=== PATIENT | female | born 1955 | race Caucasian/White ===

== ENCOUNTER 2016-07-09 05:06 | Inpatient (IN) | payer BC ==
[2016-06-14 13:26] VITALS: BMI 40.0
--- NOTE | 2016-06-14 13:55 | PAT Medication Instructions ---
Service Date Jun 14, 2016. Current Home Medication List Naproxen (Aleve), 440 MG PO PRN [Dr Karime Smith], 1 DOSE PO UD Medication Instructions For Your Scheduled Surgery - Hold the following medications 7-10 days prior to surgery per surgeon' instructions: Naproxen (Aleve), 440 MG PO PRN - Hold the following medications the morning of surgery: [Dr Karime Smith], 1 DOSE PO UD Nothing to eat or drink after midnight If you have any questions please call us at [phone] or [phone] or [phone]
[2016-06-14 14:31] LABS: BASO % 0.4 %; BASO ABS # 0.03 K/uL (0-0.2); COMPLETE YES; EOS % 0.9 %; HEMATOCRIT 43.9 % (37-47); LYMPH % 29.4 %; LYMPH ABS # 1.99 K/uL (1.2-3.4); MEAN CELL VOLUME 90.1 fL (80-100); MEAN CORPUSCULAR HEMOGLOBIN 29.6 pg (25-34); MEAN CORPUSCULAR HGB CONC 32.8 g/dl (32-36); MEAN PLATELET VOLUME 9.4 fL (7.4-10.4); MONO % 8.9 %; NEUT % 60.4 %; PLATELET COUNT 262 K/uL (130-400); RED BLOOD COUNT 4.87 M/uL (4.2-5.4); WHITE BLOOD COUNT 6.76 K/uL (4.8-10.8)
--- NOTE | 2016-06-14 14:34 | DIAGNOSTIC IMAGING REPORT ---
CHEST PREADMISSION(PA/LAT) CLINICAL HISTORY: Preoperative chest COMPARISON STUDY: No previous studies for comparison. FINDINGS: The cardiac and mediastinal contours are normal. There is no evidence of focal pulmonary consolidation. There is no evidence of failure. No pleural effusions are visualized.[ IMPRESSION: No active disease in the chest. Electronically signed by: Reji Rosario M.D. 06/14/2016 2:33 PM Dictated Date/Time: 06/14/2016 2:33 PM
[2016-06-14 14:58] LABS: URINE APPEARANCE CLOUDY (CLEAR); URINE BILIRUBIN NEG (NEG); URINE COLOR YELLOW; URINE EPITHELIAL CELL AUTO >30 /lpf (0-5); URINE NITRITE NEG (NEG); URINE PH 5.5 (4.5-7.5); URINE SPECIFIC GRAVITY 1.016 (1.000-1.030); UROBILINOGEN NEG (NEG); ZZUR CULT IF INDIC CLEAN CATCH YES
[2016-06-14 15:06] LABS: MANUAL MICROSCOPIC REQUIRED? NO; REVIEW REQ? YES
[2016-06-14 15:12] LABS: BUN/CREATININE RATIO 11.5 (10-20); CALCIUM 9.2 mg/dl (8.5-10.1); POTASSIUM 4.2 mmol/L (3.5-5.1)
--- NOTE | 2016-07-08 11:39 | HISTORY & PHYSICAL EXAMINATION ---
DATE OF ADMISSION: 07/09/2016 CHIEF COMPLAINT: Left hip pain. HISTORY OF PRESENT ILLNESS: Gertrudis is a 60-year-old female with a year history of left hip pain. The patient rates her pain an 8/10. She has pain with her daily activities. She has limited standing and walking tolerance. Pain is worse with weightbearing. The patient has failed physical therapy, injections, and anti-inflammatories over the years without relief. She is now scheduled for a left hip replacement. PAST MEDICAL HISTORY: Benign. She denies heart disease, diabetes or DVT. PAST SURGICAL HISTORY: and hysterectomy. SOCIAL HISTORY: The patient drinks 3 drinks per week. She denies tobacco use. She lives in a 2-story home. She lives alone, but her daughter is coming to stay with her postoperatively. She currently works as an surgery manager. FAMILY HISTORY: Negative for DVT. MEDICATIONS: Calcium 600 mg, vitamin B12 1000 mcg, multivitamin, vitamin D3, estradiol 0.5 mg b.i.d. and Aleve p.r.n. ALLERGIES: PENICILLIN CAUSES A RASH. REVIEW OF SYSTEMS: See HPI. Ten other systems reviewed, all negative. PHYSICAL EXAMINATION: VITAL SIGNS: Height 5 feet 5 inches. Weight 242 pounds. BMI is 40. GENERAL: This is a well-developed, well-nourished female who is alert and oriented x3. Mood and affect are appropriate. HEENT: Normocephalic, atraumatic. Mucous membranes are moist and intact. NECK: Supple without lymphadenopathy. HEART: Regular rate and rhythm without murmurs, rubs or gallops. LUNGS: Clear to auscultation without wheezes or rhonchi. ABDOMEN: Soft and nontender. Bowel sounds are equal and active. EXTREMITIES: No ecchymosis, redness or warmth. Log roll of the hip reproduces pain in the groin. Range of motion is decreased. She is neurovascularly intact with +5/5 strength. X-RAY EXAMINATION: AP and lateral views show joint space narrowing and osteophyte formation. IMPRESSION: Degenerative joint disease, left hip. PLAN: The patient will be admitted for a left total hip arthroplasty. We will plan on aspirin for DVT prophylaxis. PCP is Dr. Tommy Dorado. She is going to have [facility] for home physical therapy.
[2016-07-09] VITALS (10 sets, daily range): BP systolic 106–136; BP diastolic 68–80; PULSE 60–76; TEMP 36.3–36.9; O2SAT 93–99; Ht 165.1 cm; Wt 110.6 kg
[~2016-07-09] VITALS: Ht 165.1 cm; Wt 110.6 kg
[~2016-07-09 05:06] MED LIST: NAPR1TAB9 PO; [UNRECOGNIZED DRUG - REMARK] PO
[2016-07-09] MEDS ORDERED: LACTATED RINGER'S 1000ML 1,000 ML IV SCH ×2 (06:00)
[2016-07-09] MEDS ORDERED: FAMOTIDINE 20 MG TAB PO SCH (06:00)
[2016-07-09] MEDS ORDERED: DEXAMETHASONE 4 MG TAB PO SCH (06:00)
[2016-07-09] MEDS ORDERED: VANCOMYCIN INJ 400 MG in NSS 100ML IR SCH (06:00)
[2016-07-09] MEDS ORDERED: LACTATED RINGER'S 1000ML 500 ML IV ONE (06:00)
[2016-07-09] MEDS ORDERED: GABAPENTIN 300 MG CAP PO SCH (06:00)
[2016-07-09] MEDS ORDERED: ACETAMINOPHEN 500 MG TAB PO SCH (06:00)
[2016-07-09] MEDS ORDERED: CLINDAMYCIN 600 MG/54 ML D5W 54 ML IV SCH (06:00)
[2016-07-09] MEDS ORDERED: OXYCODONE HCL 10 MG TABCR (OXYCONTIN) PO SCH (06:00)
[2016-07-09] MEDS ORDERED: METOCLOPRAMIDE HCL 10 MG TAB PO SCH (06:00)
[2016-07-09] MEDS ORDERED: CeleBREX 200 MG CAP PO SCH ×2 (06:00→21:00)
[2016-07-09] MEDS ORDERED: ROPIVACAINE 5MG/ML 30 ML 150 MG, BUPIVACAINE/EPINEPHR 0.5% MPF 30 ML, KETOROLAC TROMETH... INFIL SCH ×7 (06:00)
[2016-07-09] MEDS ORDERED: POLYMYXIN B SULFATE 100,000 UNITS in NSS 100ML IR SCH (06:00)
[2016-07-09] MEDS ORDERED: BUPIVACAINE 0.5 % 5 MG/1 ML PF 10ML VIAL ONE (06:37)
[2016-07-09] MEDS ORDERED: ORTHO JOINT ANESTHETIC ONE (06:51)
[2016-07-09] MEDS ORDERED: POVIDONE-IODINE OP SOLN 30 ML BTL ONE (06:51)
[2016-07-09] MEDS ORDERED: BACITRACIN 50000 UNIT VIAL ONE (06:51)
[2016-07-09] MEDS: TRANEXAMIC ACID INJ 1,000 MG in SODIUM CHLORIDE 0.9% 100ML 100 ML IV SCH ×2 (06:52→10:51)
--- NOTE | 2016-07-09 06:54 | History & Physical Bridge Note ---
H&P Re-Evaluation Bridge Note: I have examined the patient, reviewed the History & Physical and in the interval since the performance of the History & Physical I have noted the following changes of clinical significance: ANTERIOR HIP REPLACEMENT
[2016-07-09] MEDS ORDERED: ATROPINE SULFATE 0.1 MG/ML 5ML SYR IV PRN (07:15)
[2016-07-09] MEDS ORDERED: ONDANSETRON INJ 2 MG/ML 2 ML VIAL IV PRN ×2 (07:15→08:45)
[2016-07-09] MEDS ORDERED: PHENYLEPHRINE 100MCG/ML 5ML SYR IV PRN (07:15)
[2016-07-09] MEDS ORDERED: KETOROLAC TROMETHAMINE 30 MG/ML VIAL IV. PRN (07:15)
[2016-07-09] MEDS ORDERED: HYDROmorphone INJ 2 MG/ML SYR/VIAL IV PRN (07:15)
[2016-07-09] MEDS ORDERED: EpHEDrine SULFATE INJ 50 MG/ML AMP IV PRN (07:15)
[2016-07-09] MEDS ORDERED: MIDAZOLAM HCL 1 MG/ML 2ML VIAL ONE ×3 (07:21→07:42)
[2016-07-09] MEDS ORDERED: FENTANYL CITRATE INJ 50 MCG/1 ML 2 ML VIAL ONE (07:42)
--- NOTE | 2016-07-09 08:41 | DIAGNOSTIC IMAGING REPORT ---
INTRAOPERATIVE RADIOGRAPHS CLINICAL HISTORY: Left hip arthroplasty. Fluoroscopy time: 17 seconds. FINDINGS: 2 spot fluoroscopic views of the left hip are presented. A left hip arthroplasty is in near-anatomic alignment. A single cortical lag screw transfixes the acetabular cup. There is no evidence of acute fracture on these fluoroscopic views. IMPRESSION: Intraoperative images from a left hip arthroplasty procedure as above. Electronically signed by: Kenneth Marrufo M.D. 07/09/2016 8:40 AM Dictated Date/Time: 07/09/2016 8:39 AM
--- NOTE | 2016-07-09 08:41 | [facility] Post Operative Brief Note ---
Immediate Operative Summary Operative Date July 09, 2016. Pre-Operative Diagnosis Degenerative joint disease, left hip Post-Operative Diagnosis Same as preop MORBID OBESITY BMI 41 Procedure(s) Performed Left Total Hip Arthroplasty, uncemented, Direct Anterior Approach Surgeon Dr. Schaffer Carpenter Supervisor Wooden Ship Surgeon(s) Matthew Henderson PA-C Estimated Blood Loss 125 cc Findings DJD Specimens A: left femoral head Complication(s) None Disposition Recovery Room / PACU
[2016-07-09] MEDS ORDERED: ZOLPIDEM TARTRATE 5 MG TAB PO PRN (08:45)
[2016-07-09] MEDS ORDERED: TRAMADOL HCL 50 MG TAB PO PRN (08:45)
[2016-07-09] MEDS ORDERED: BISACODYL 10 MG SUPP PR PRN (08:45)
[2016-07-09] MEDS ORDERED: ALUMINUM/MAGNESIUM/SIMETH (MAALOX MAX) 30 ML UDC PO PRN (08:45)
[2016-07-09] MEDS ORDERED: DiphenhydrAMINE HCL 50 MG/ML VIAL IV PRN (08:45)
[2016-07-09] MEDS ORDERED: METOCLOPRAMIDE HCL INJ 5 MG/ML 2 ML VIAL IV PRN (08:45)
[2016-07-09] MEDS ORDERED: SOD PHOSPHATE/SOD BIPHOSPHATE ENEMA 132 ML BTL PR PRN (08:45)
[2016-07-09] MEDS ORDERED: MAGNESIUM HYDROXIDE SUSP 30 ML UDC PO PRN (08:45)
[2016-07-09] MEDS ORDERED: OXYCODONE HCL IR 5 MG TAB (IMMEDIATE RELEASE) PO PRN (08:45)
--- NOTE | 2016-07-09 09:46 | DIAGNOSTIC IMAGING REPORT ---
LEFT PELVIS/UNILATERAL HIP 1 VIEW CLINICAL HISTORY: Left hip arthroplasty. COMPARISON: None FINDINGS: Alignment of the total left hip arthroplasty is anatomic. There is no periprosthetic fracture or unexpected radiopaque foreign body. Surgical drain is in place. IMPRESSION: Expected findings following total left hip arthroplasty. Electronically signed by: Bird Coffey M.D. 07/09/2016 9:44 AM Dictated Date/Time: 07/09/2016 9:43 AM
--- NOTE | 2016-07-09 10:06 | Anesthesiology Progress Note ---
Anesthesia Post Op Note Date & Time July 09, 2016 at 10:06 Vital Signs Pain Intensity: 0 Vital Signs Past 12 Hours Date Time Temp Pulse Resp B/P Pulse Ox O2 Delivery O2 Flow Rate FiO2 07/09/16 10:00 60 15 108/73 97 Nasal Cannula 2 07/09/16 09:50 36.1 61 16 119/89 97 Nasal Cannula 2 07/09/16 09:40 60 14 116/73 98 Nasal Cannula 2 07/09/16 09:30 60 16 111/74 98 Nasal Cannula 2 07/09/16 09:20 63 12 121/70 99 Nasal Cannula 2 07/09/16 09:10 61 20 110/71 98 Nasal Cannula 2 07/09/16 09:03 36.1 64 16 133/70 96 Nasal Cannula 2 07/09/16 05:47 36.9 73 18 122/73 95 Room Air Notes Mental Status: alert / awake / arousable, participated in evaluation Pt Amnestic to Procedure: Yes Nausea / Vomiting: adequately controlled Pain: adequately controlled Airway Patency, RR, SpO2: stable & adequate BP & HR: stable & adequate Hydration State: stable & adequate Neuraxial Anesthesia: was administered, sensory block is resolving Anesthetic Complications: no major complications apparent
[2016-07-09] MEDS ORDERED: PROPOFOL IV EMULSION 10 MG/ML 20 ML VIAL IV ONE ×3 (10:29→10:43)
[2016-07-09] MEDS: D5W AND 1/2NSS + 20MEQ KCL 1,000 ML IV SCH ×2 (12:41→21:15)
[2016-07-09] MEDS: KETOROLAC TROMETHAMINE 30 MG/ML VIAL IV. SCH ×3 (12:42→23:31)
[2016-07-09] MEDS ORDERED: TRANEXAMIC ACID INJ 1,000 MG in SODIUM CHLORIDE 0.9% 100ML 100 ML IV ONE (15:00)
[2016-07-09] MEDS: CLINDAMYCIN IV 600 MG in DEXTROSE 5% ADD-VANTAGE 50ML 50 ML IV SCH ×2 (16:41→23:31)
[2016-07-09] MEDS: ACETAMINOPHEN 500 MG TAB PO SCH ×2 (16:47→23:32)
--- NOTE | 2016-07-09 20:04 | OPERATIVE REPORT ---
DATE OF OPERATION: 07/09/2016 PREOPERATIVE DIAGNOSES: 1. Degenerative arthritis, left hip. 2. Morbid obesity, BMI 40. POSTOPERATIVE DIAGNOSES: Same. PROCEDURE: Left total hip replacement. SURGEON: Antonio Schaffer M.D. PLANER HAND: Latasha Henderson PA-C. ANESTHESIA: Spinal. BLOOD LOSS: 125 mL. REPLACEMENT FLUIDS: 1800 mL of crystalloid. DRAINS: Hemovacs x1. CULTURES: None. COMPLICATIONS: None. COMPONENTS USED: Roberts \T\ Nephew Anthology hip system: Acetabulum size 50, femur size 7 standard offset, femoral head 0, neck length 32 mm. NOTE: Latasha Henderson PA-C was present and assisted throughout due to the complicated nature of this case. She helped with preparation and setup, first assisted throughout and personally closed the fascial, subcutaneous and skin layers and applied the postoperative dressing. OPERATION AND FINDINGS: DESCRIPTION: Following satisfactory spinal, the patient was supine. The right leg was placed in the well leg ybarra and the left leg in the traction device. The left leg was prepared with ChloraPrep and draped sterilely. Following a surgical time-out, an anterior incision was made in the interval between the sartorius and tensor muscles. Additional time and effort were required to expose the hip because of a large subcutaneous fat layer which measured at least 3-4 inches thick. This required a more lengthy incision and additional surgical effort. Eventually, the fascia was divided after hemostasis and exposure. Circumflex femoral vessels were identified and ligated and anterior capsulotomy was performed exposing the arthritic femoral neck and head. Femoral neck and head were trimmed and removed. The acetabular self-retraining retractor was placed. Acetabular reaming was completed and under fluoroscopic guidance, a 50 shell was impacted into an anatomic position and secured with a dome screw. Local anesthetic was placed and after irrigation, the polyethylene liner was placed. The femur was placed into position of external rotation, extension and adduction. This allowed access to the femoral canal with some difficulty. Femoral canal was prepared up to a size 7. Intraoperative fluoroscopy with a 0 neck length head showed samaritan of leg lengths using anatomic landmarks and good fit and fill of the proximal canal again on fluoroscopy. The hip was dislocated. The trial component was removed. The final implant was placed and the hip was reduced with fluoroscopy confirming the position. A Betadine soak was performed. After 5 minutes, the Betadine was irrigated. The capsule was closed with 1-0 Vicryl interrupted. A drain was placed. The fascia was closed with 1-0 Vicryl interrupted. The subcutaneous tissues were closed with 0 and 1 Vicryl, 2-0 Vicryl more superficial, and the skin was closed with a running subcuticular stitch of 3-0 V-Loc. Dermabond and a dry dressing were applied. The patient was returned to her bed in stable condition. I attest to the content of the Intraoperative Record and any orders documented therein. Any exceptio ns are noted below.
[2016-07-09] MEDS ORDERED: SENNA 8.6 MG TAB PO SCH (21:00)
[2016-07-09] MEDS: ASPIRIN 81 MG ECTAB PO SCH (21:12)
[2016-07-10 02:50] VITALS: BP 130/77; PULSE 77; TEMP 36.5; O2SAT 97
[2016-07-10] MEDS: KETOROLAC TROMETHAMINE 30 MG/ML VIAL IV. SCH ×2 (05:30→12:00)
[2016-07-10 06:07] LABS: BASO % 0.1 %; BASO ABS # 0.02 K/uL (0-0.2); COMPLETE YES; HEMATOCRIT 38.2 % (37-47); IG% 0.3 %; LYMPH % 12.7 %; LYMPH ABS # 1.91 K/uL (1.2-3.4); MEAN CELL VOLUME 90.5 fL (80-100); MEAN CORPUSCULAR HEMOGLOBIN 30.3 pg (25-34); MEAN CORPUSCULAR HGB CONC 33.5 g/dl (32-36); MEAN PLATELET VOLUME 9.7 fL (7.4-10.4); MONO % 8.4 %; NEUT % 78.5 %; PLATELET COUNT 222 K/uL (130-400); RED BLOOD COUNT 4.22 M/uL (4.2-5.4); WHITE BLOOD COUNT 15.07 K/uL (4.8-10.8)
[2016-07-10 06:48] LABS: BUN/CREATININE RATIO 11.4 (10-20); CALCIUM 8.5 mg/dl (8.5-10.1); CREATININE 0.73 mg/dl (0.60-1.20); POTASSIUM 4.1 mmol/L (3.5-5.1)
--- NOTE | 2016-07-10 07:36 | Orthopedic Progress Note ---
Orthopedic Progress Note Date of Service July 10, 2016. Subjective Post OP Day: 1 ( L SATNAM ) Reports: feeling well, pain controlled w PO medications, Denies: SOB, calf pain , complaints, light headedness, nausea / vomiting Objective calves soft nontender, hip located, dressing C/D/I, A&O x3, toes mobile Date Time Temp Pulse Resp B/P Pulse Ox O2 Delivery O2 Flow Rate FiO2 07/10/16 02:50 36.5 77 19 130/77 97 Room Air 07/09/16 23:59 Room Air 07/09/16 23:46 36.5 73 18 136/80 97 Room Air 07/09/16 19:06 36.5 76 18 124/69 93 Room Air 07/09/16 16:00 96 Nasal Cannula 2.0 07/09/16 15:08 36.7 62 18 110/71 96 Nasal Cannula 2.0 07/09/16 13:10 36.7 66 17 106/70 97 Nasal Cannula 07/09/16 12:16 36.3 62 14 118/72 98 Room Air 07/09/16 11:10 62 18 120/79 98 Nasal Cannula 2.0 07/09/16 10:35 63 18 114/74 99 Nasal Cannula 2.0 07/09/16 10:05 36.3 60 18 106/68 97 Nasal Cannula 2.0 07/09/16 10:05 97 Nasal Cannula 2.0 07/09/16 10:05 Room Air 07/09/16 10:00 60 15 108/73 97 Nasal Cannula 2 07/09/16 09:50 36.1 61 16 119/89 97 Nasal Cannula 2 07/09/16 09:40 60 14 116/73 98 Nasal Cannula 2 07/09/16 09:30 60 16 111/74 98 Nasal Cannula 2 07/09/16 09:20 63 12 121/70 99 Nasal Cannula 2 07/09/16 09:10 61 20 110/71 98 Nasal Cannula 2 07/09/16 09:03 36.1 64 16 133/70 96 Nasal Cannula 2 Laboratory Results 24 Hours: Test 07/10/16 05:20 White Blood Count 15.07 K/uL Red Blood Count 4.22 M/uL Hemoglobin 12.8 g/dL Hematocrit 38.2 % Mean Corpuscular Volume 90.5 fL Mean Corpuscular Hemoglobin 30.3 pg Mean Corpuscular Hemoglobin Concent 33.5 g/dl Platelet Count 222 K/uL Mean Platelet Volume 9.7 fL Neutrophils (%) (Auto) 78.5 % Lymphocytes (%) (Auto) 12.7 % Monocytes (%) (Auto) 8.4 % Eosinophils (%) (Auto) 0.0 % Basophils (%) (Auto) 0.1 % Neutrophils # (Auto) 11.84 K/uL Lymphocytes # (Auto) 1.91 K/uL Monocytes # (Auto) 1.26 K/uL Eosinophils # (Auto) 0.00 K/uL Basophils # (Auto) 0.02 K/uL Assessment & Plan Assessment: POD L SATNAM Plan: HOME TODAY W RAYO SOOD Inhouse Planning Pain Management: Celebrex, PO Tylenol, Oxy IR DVT Prophylaxis: TEDs, SCDs, ASA Discharge Planning Discharge Planning: home with home health Pain Management: Celebrex, PO Tylenol, Oxy IR DVT Prophylaxis: TEDs, ASA Therapy: Physical Therapy
--- NOTE | 2016-07-10 07:45 | Anesthesiology Progress Note ---
Anesthesia Post Op Note Date & Time July 10, 2016 at 07:44 Vital Signs Pain Intensity: 3.0 Vital Signs Past 12 Hours Date Time Temp Pulse Resp B/P Pulse Ox O2 Delivery O2 Flow Rate FiO2 07/10/16 02:50 36.5 77 19 130/77 97 Room Air 07/09/16 23:59 Room Air 07/09/16 23:46 36.5 73 18 136/80 97 Room Air Notes Mental Status: alert / awake / arousable, participated in evaluation Pt Amnestic to Procedure: Yes Nausea / Vomiting: adequately controlled Pain: adequately controlled Airway Patency, RR, SpO2: stable & adequate BP & HR: stable & adequate Hydration State: stable & adequate Anesthetic Complications: no major complications apparent
[2016-07-10] MEDS ORDERED: SNK PO (07:51)
[2016-07-10] MEDS ORDERED: CLB200 PO (07:51)
[2016-07-10] MEDS ORDERED: ONDA8TAB6 PO (07:51)
[2016-07-10] MEDS ORDERED: ASPEC81 PO (07:51)
[2016-07-10] MEDS: D5W AND 1/2NSS + 20MEQ KCL 1,000 ML IV SCH (07:51)
[2016-07-10] MEDS ORDERED: RXC5 PO (07:51)
[2016-07-10] MEDS ORDERED: ACET-1138 PO (07:51)
[2016-07-10 07:52] VITALS: BP 122/82; PULSE 70; TEMP 36.5; O2SAT 97
[2016-07-10] MEDS: ACETAMINOPHEN 500 MG TAB PO SCH ×2 (07:52→13:57)
--- NOTE | 2016-07-10 07:52 | Discharge Instructions ---
Discharge Instructions Date of Service July 10, 2016. Admission Reason for Admission: Djd Knee Left Discharge Discharge Diagnosis / Problem: sp left TKA Discharge Goals Goal(s): Decrease discomfort, Improve function, Increase independence Activity Recommendations Activity Limitations: per Instructions/Follow-up section . Instructions / Follow-Up Instructions / Follow-Up ACTIVITY RECOMMENDATIONS: SELF CARE INSTRUCTIONS AFTER TOTAL KNEE REPLACEMENT A. You may need to continue a physical therapy program after discharge from the hospital. There are several options available to you. Your doctor will assist you in selecting the best one for you. 1. An out-patient facility 2 to 3 times a week for therapy or home therapy. 2. Continue working on all exercises taught to you in the hospital. Your goals should be to increase bending of your knee to 90 degrees and beyond and to fully straighten your knee. B. You may progress at your own pace from walking with a walker or crutches to a cane; then to no assistive devices. C. Make walking a part of your daily routine. Be up as much as comfortable with rest periods throughout the day. Rest with leg elevation is very important. Use the ice wrap frequently for the first 3-4 weeks. D. There are no restrictions on activities. You may ride in a car, shop, participate in cycle counter and all social activities. E. Wear the long elastic stockings (EUSEBIA hose) 20 hours a day for 2 weeks after surgery. They can be removed several times a day for laundering and for a bath. F. You may shower, no tub baths until cleared by your doctor. SPECIAL CARE INSTRUCTIONS: VERY IMPORTANT TO READ AND REVIEW A. There are a few signs you need to watch for after you are home. Call [facility] if you notice any of the followin. Increased severe knee pain. Some pain is expected especially when you exercise. 2. Increased swelling in your leg or knee; pain or swelling of the calf muscle in either lower leg. 3. Any fluid drainage from the incision. 4. Shortness of breath or chest pain. B. Please call [facility] at if you have any concerns or questions about your operation or recovery. The doctor or his nurse will return your call promptly. C. You must take antibiotics before dental work, bladder, bowel or other surgery. Your doctor will provide you with a permanent care to carry describing this precaution. IMPORTANT: * REMEMBER TO TAKE ASPIRIN, 81 MG, TWICE DAILY FOR 4 WEEKS UNLESS OTHERWISE DIRECTED. THIS IS YOUR BLOOD THINNER. * HIGH RISK PATIENTS MAY BE PRESCRIBED A STRONGER BLOOD THINNER. THIS WILL BE PROVIDED AT DISCHARGE. * CALL IF INCREASED PAIN, REDNESS, DRAINAGE OR FEVER GREATER THAT 101. * WEAR EUSEBIA HOSE 20 HOURS PER DAY FOR 2 WEEKS. DERMABOND Prineo- This is a mesh tape dressing that is covered with glue. It should remain in place until the incision is properly healed, usually 10-14 days. This dressing is designed to naturally slough off. You may trim the excess mesh tape as it peels off. Incision may be briefly wet in a shower. Dry immediately by blotting with a clean, dry towel. Do not bath or swim until instructed by your doctor. Do not scratch, rub, or pick at the dressing. Do not apply any topical ointments or lotions until dressing is completely removed and/or instructed by your doctor. There may be a small piece of suture material at one end of your incision. Do not pull or trim this. If it is bothersome or catching on clothing, you may cover it with a band-aid. FOLLOW UP VISIT: If appointment is not already scheduled: Please call [facility] to make a follow-up appointment for 2 weeks after your surgery at . Current Hospital Diet Patient's current hospital diet: Regular Diet Discharge Diet Recommended Diet: Regular Diet Procedures Procedures Performed: Left Total Hip Arthroplasty, uncemented, Direct Anterior Approach Pending Studies Studies pending at discharge: no Medical Emergencies . Who to Call and When: Medical Emergencies: If at any time you feel your situation is an emergency, please call 911 immediately. . Non-Emergent Contact Non-Emergency issues call your: Surgeon . "Provider Documentation" section prepared by Latasha Henderson. . VTE Core Measure Inpt VTE Proph given/why not?: Other Anticoagulation, T.E.D. Stockings, SCD's [place] Drug Monitoring Program Search Results: patient reviewed within database, no issues identified
[2016-07-10 08:15] VITALS: O2SAT 97
[2016-07-10] MEDS ORDERED: PANTOprazole SOD 40 MG TAB PO SCH (09:00)
[2016-07-10] MEDS ORDERED: MULTIVITAMIN TAB PO SCH (09:00)
[2016-07-10] MEDS: ASPIRIN 81 MG ECTAB PO SCH (09:12)
[2016-07-10 11:20] VITALS: BP 122/82; PULSE 70; TEMP 36.5; O2SAT 97
--- NOTE | 2016-07-10 13:50 | Discharge Instructions ---
Discharge Instructions Date of Service July 10, 2016. Admission Reason for Admission: Djd Knee Left Discharge Discharge Diagnosis / Problem: sp left SATNAM Discharge Goals Goal(s): Decrease discomfort, Improve function, Increase independence Activity Recommendations Activity Limitations: per Instructions/Follow-up section . Instructions / Follow-Up Instructions / Follow-Up ACTIVITY RECOMMENDATIONS: SELF CARE INSTRUCTIONS AFTER TOTAL HIP REPLACEMENT : Direct Anterior Approach Until the incision and soft tissues around your hip have healed, there is a possibility that the hip prosthesis could dislocate. A. Hip flexion ( Up & Down out of chair or steps ) may be difficult. This is normal. B. Numbness in front of the thigh is also normal for a few weeks. C. Use hand rails when walking on stairs. D. Wear low heeled shoes with non-slip soles. E. Be sure that your floors are free of things that could trip you - throw rugs , electrical cords, small objects. Avoid wet and waxed floors, especially with crutches and canes. F. Try to walk several times a day with rest periods between. G. Continue with all the exercises taught to you in the hospital. Again, make walking a part of your daily routine. SPECIAL CARE INSTRUCTIONS: VERY IMPORTANT TO READ AND REVIEW A. You may still be at risk for phlebitis and blood clots. 1. Wear surgical stockings (EUSEBIA hose) for 2 weeks after surgery to improve circulation and reduce swelling. 2. Take Aspirin 81mg twice daily for 4 weeks or as directed by your doctor. This is your blood thinner. 3. High risk patients may be prescribed a stronger blood thinner if necessary. 4. If you are on Coumadin normally, your family doctor/manager of production should monitor your blood work. Expect a phone call the day of or the day after bloodwork is drawn to adjust your dosage. B. You must take antibiotics before having dental work, bladder, bowel and other surgery. Your doctor will provide you with a permanent card to carry describing precautions. C. Call [facility] if you have a fever, redness or swelling around the incision, cloudy drainage from incision, or sudden increase in pain in your hip, not relieved by your regular pain medication. D. Please call the office at if you have any concerns or questions about your operation or recovery. * YOU MAY SHOWER, NO TUB BATHS UNTIL CLEARED BY YOUR DOCTOR. - Keep an extra close eye on the top portion of your incision. Be sure to keep clean & dry. * WEAR EUSEBIA HOSE 20 HOURS PER DAY FOR 2 WEEKS. * YOU MAY PROGRESS FROM A WALKER, TO A CANE, TO INDEPENDENT AT YOUR OWN PACE. * MOST PATIENTS WILL HAVE HOME NURSING FOR THERAPY. IF YOU DECIDE TO DO OUTPATIENT PHYSICAL THERAPY, PLEASE SCHEDULE THIS 3 TIMES PER WEEK. * DERMABOND Prineo- This is a mesh tape dressing that is covered with glue. It should remain in place until the incision is properly healed, usually 10-14 days. This dressing is designed to naturally slough off. You may trim the excess mesh tape as it peels off. Incision may be briefly wet in a shower. Dry immediately by blotting with a clean, dry towel. Do not bath or swim until instructed by your doctor. Do not scratch, rub, or pick at the dressing. Do not apply any topical ointments or lotions until dressing is completely removed and/or instructed by your doctor. There may be a small piece of suture material at one end of your incision. Do not pull or trim this. If it is bothersome or catching on clothing, you may cover it with a band-aid. FOLLOW UP VISIT: If appointment is not already scheduled: Please call [facility] to make a follow-up appointment for 2 weeks after your surgery at . Current Hospital Diet Patient's current hospital diet: Regular Diet Discharge Diet Recommended Diet: Regular Diet Procedures Procedures Performed: Left Total Hip Arthroplasty, uncemented, Direct Anterior Approach Pending Studies Studies pending at discharge: no Medical Emergencies . Who to Call and When: Medical Emergencies: If at any time you feel your situation is an emergency, please call 911 immediately. . Non-Emergent Contact Non-Emergency issues call your: Surgeon . "Provider Documentation" section prepared by Latasha Henderson. . VTE Core Measure Inpt VTE Proph given/why not?: Other Anticoagulation, T.E.D. Stockings, SCD's [place] Drug Monitoring Program Search Results: patient reviewed within database, no issues identified
--- NOTE | 2016-07-16 23:46 | DISCHARGE SUMMARY ---
DISCHARGE DIAGNOSIS: Degenerative joint disease, left hip. SECONDARY DIAGNOSIS: None. CONSULTS: None. COMPLICATIONS: None. PROCEDURE: The patient underwent a left total hip arthroplasty, direct anterior approach with Dr. Schaffer on 07/09/2016. BRIEF HISTORY: Please see previously dictated history and physical. HOSPITAL SUMMARY: The patient was admitted on the above day for the above procedure. Procedure went without complication. Postop day 1, patient was feeling well without complaints. She denied chest pain or shortness of breath. Vital signs were stable. She was afebrile. Dressing was clean, dry and intact. She was neurovascularly intact. Calves were soft and nontender. Hemoglobin was 12.8. The patient began physical therapy per protocol. She was discharged to home with [facility] physical therapy later that day in stable condition. For further review please see the chart. Lab, x-ray data and discharge instructions as per chart.
== END 2016-07-10 15:16 | disposition home health service (06) | DRG 470 ==
LOC: ENRESERVDT → ENRESERVTM → C.ACU 05:06 → C.3E 08:44
PROVIDERS: ADMIT Orthopaedic Surgery; ATTEND Orthopaedic Surgery
PROC: 0SRB0JA Replacement of Left Hip Joint with Synthetic Substitute, Uncemented, Open Approach (ICD-10-PCS; principal; 2016-07-09 07:15)
DX: M16.12 Unilateral primary osteoarthritis, left hip (principal); Z68.41 Body mass index [BMI] 40.0-44.9, adult; E66.01 Morbid (severe) obesity due to excess calories